=== PATIENT | male | born 1955 | race Caucasian/White ===

== ENCOUNTER 2017-10-23 15:22 | Emergency (ER) | payer OTHER ==
[~2017-10-23] VITALS: Ht 177.8 cm; Wt 100.0 kg
[2017-10-23 15:28] VITALS: BP 133/59; PULSE 84; RESP 16; TEMP 97.5; O2SAT 99
[2017-10-23] MEDS ORDERED: LIDOCAINE HCL 1% 50 ML VIAL INFIL ONE (17:45)
[2017-10-23] MEDS ORDERED: BUPIVACAINE HCL PF 0.5% 10 ML VIAL INFIL ONE (17:45)
[2017-10-23] MEDS ORDERED: LIDOCAINE HCL 1% PF 30 ML VIAL INFIL ONE (18:00)
--- NOTE | 2017-10-23 18:13 | PD ---
HPI Chief Complaint: Musculoskeletal Complaint Time Seen by Provider: 16:43 Travel History International Travel<30 days: No Contact w/Intl Traveler<30days: No Traveled to known affect area: No History of Present Illness HPI 62-year-old male presents to the emergency room requesting a joint aspiration of the right knee. Patient states he went to the [place] prior to arrival and they recommended he come here.0 2 of the joint aspirated. They were concerned for infection because the joint is slightly warm and red. Patient states this has been going on for 2 weeks. He has been able to try since then. He reports moderate pain. He has not taken anything for symptoms. He has history of bilateral knee replacement. His last operation on the right knee was in June,. Since then he is only had one other episode of "water on the knee." Prior to the last operation he states his knee was being drained every few months. Patient states that significant he improves his pain when he has his knee drained. He denies fever, chills, nausea, vomiting. Denies history of gout. [facility] Past Medical History High Cholesterol: Yes Diabetes: Yes Patient Takes Glucophage: Yes (metformin) Hypertension: Yes Past Surgical History Coronary Stent: Yes (2012, 2010) Joint Replacement: Yes (bilateral knees) Social History Alcohol Use: Yes (occ ) Tobacco Use: No Substance Use: No Allergies-Medications (Allergen,Severity, Reaction): Coded Allergies: No Known Allergies (Unverified , 10/23/17) Review of Systems Except as stated in HPI: all other systems reviewed are Neg Physical Exam Narrative GENERAL: Well-nourished, well-developed male in no acute distress. Afebrile. Ambulatory. SKIN: Focused skin assessment warm/dry. Mild increased warmth and redness to the right knee. HEAD: Normocephalic. EYES: No scleral icterus. No injection or drainage. NECK: Supple, trachea midline. No JVD or lymphadenopathy. CARDIOVASCULAR: Regular rate and rhythm without murmurs, gallops, or rubs. RESPIRATORY: Breath sounds equal bilaterally. No accessory muscle use. MUSCULOSKELETAL: No cyanosis, or edema. Obvious but mild effusion of the right knee. 2+ dorsalis pedis pulse. Slightly limited range of motion secondary to edema. Patient does not appear to be in significant pain during range of motion. Data Data Last Documented VS Vital Signs Date Time Temp Pulse Resp B/P (MAP) Pulse Ox O2 Delivery O2 Flow Rate FiO2 10/23/17 15:28 97.5 84 16 133/59 (83) 99 Orders Orders Knee, Ltd (1 Or 2vws) (10/23/17 ) Bupivacaine Pf 0.5% Inj (Marcaine Pf 0.5 (10/23/17 17:45) Lidocaine 1% Inj (50 Ml) (Xylocaine 1% I (10/23/17 17:45) Lidocaine Pf 1% Inj (Xylocaine-Mpf 1% In (10/23/17 18:00) Ed Discharge Order (10/23/17 18:56) MDM Medical Decision Making Medical Screen Exam Complete: Yes Emergency Medical Condition: Yes Medical Record Reviewed: Yes Differential Diagnosis Inflammatory arthritis, traumatic effusion, septic arthritis unlikely Narrative Course 62-year-old male presents to the emergency room requesting an aspiration of his right knee. [facility]. I have no clinical suspicion for septic arthritis. He is ambulatory with full range of motion. There is mild erythema and mild increased warmth. Patient has had no fevers. Dr. Massey performed a joint aspiration, see alternate provider note for details. The procedure did not produce any synovial fluid. Patient was told to follow-up as an outpatient for orthopedic intervention. He understands and agrees to plan. Diagnosis Primary Impression: Inflammatory arthritis Referrals: Orthopedist Additional Instructions: Follow-up with orthopedics. Return to the emergency room for worsening symptoms. Disposition: 01 DISCHARGE HOME Condition: Stable Melyssa Reno Oct 23, 2017 18:13
--- NOTE | 2017-10-23 18:21 | RADRPT ---
EXAM DATE/TIME: 10/23/2017 18:09 [facility] COMPARISON: No previous studies available for comparison. INDICATIONS : Right knee medial and lateral pain, no known injury. MEDICAL HISTORY : Hypertension. Diabetes mellitus type II. SURGICAL HISTORY : Total knee replacement, right. ENCOUNTER: Initial ACUITY: 1 week PAIN SCORE: 7/10 LOCATION: Right knee FINDINGS: Patient has a left total knee arthroplasty without evidence of fracture, subluxation or hardware fail ure/loosening. There is a small, nonspecific joint effusion. Also small apparent thickening of the pa tellar tendon best demonstrated on the lateral view. CONCLUSION: Intact right total knee arthroplasty. Suspected patellar tendinosis. Small, nonspecific joint effusio n. Jose Nickerson MD on October 23, 2017 at 18:18 Board Certified Radiologist. This report was verified electronically.
--- NOTE | 2017-10-23 18:56 | PD ---
Data Data Last Documented VS Vital Signs Date Time Temp Pulse Resp B/P (MAP) Pulse Ox O2 Delivery O2 Flow Rate FiO2 10/23/17 15:28 97.5 84 16 133/59 (83) 99 Orders Orders Fluid Culture And Gram Stain (10/23/17 17:45) Synovial Fl Cell Count + Diff (10/23/17 17:45) Synovial Fluid Crystals (10/23/17 17:45) Synovial Fluid Glucose (10/23/17 17:45) Synovial Fluid Total Protein (10/23/17 17:45) Knee, Ltd (1 Or 2vws) (10/23/17 ) Bupivacaine Pf 0.5% Inj (Marcaine Pf 0.5 (10/23/17 17:45) Lidocaine 1% Inj (50 Ml) (Xylocaine 1% I (10/23/17 17:45) Lidocaine Pf 1% Inj (Xylocaine-Mpf 1% In (10/23/17 18:00) MDM Supervised Visit with HUNTER: Yes Narrative Course The history, exam, and medical decision-making in the associated mid-level provider note were completed with my assistance. I reviewed and agree with the findings presented. I attest that I had a [id number] encounter with the patient on the same day, and personally performed and documented my assessment and findings in the medical record. *My assessment and Findings: This is a 62-year-old man who presents to the emergency department complaining of right knee pain and swelling. Been going on for about a week or so. Patient has extensive surgical history affecting the right knee including 2 joint replacements. He has had trouble with recurrent joint effusions and has had them drained multiple times in the past. He demonstrated offers him significant relief. He has had it happen one time since his last surgery. Is been worsening pain and swelling over the past week or so. [facility]. He has full range of motion of the knee without limitation. There is minimal warmth to the knee. There is swelling, but the states the amount of swelling is very common for him. I had an extensive discussion with the patient and his . Initially recommended against any attempt at arthrocentesis given my very low concern for septic arthritis. Patient states that arthrocentesis offered him significant relief in the past. His orthopedic surgeon he has not seen in some time and is in [place] where he used to live. After discussion of risks and benefits including the significant increased risk of infection, patient would like to proceed. Using sterile technique, we attempted to drain fluid from the area of maximum fluctuance in the inferior lateral aspect of the knee. 2 attempts with no return of fluid. At this point I recommended strongly against avoiding any further attempts at arthrocentesis. I believe the increased risk of infection and extremely low risk of current septic arthritis would suggest the best course of action is some compression, and follow-up with an orthopedic surgeon. I told him I would give them follow-up information for our orthopedic group, and also for Dr. Mcneal who is down here where they live. They believe they have to go through [facility] not to get orthopedics to the [place]. At this point he is comfortable. He has no infectious symptoms other than some minimal warmth to the right knee. I think this is an inflammatory arthritis, recommend outpatient follow-up with orthopedics. Return for any worsening symptoms. Diagnosis Primary Impression: Inflammatory arthritis Referrals: Faustina Posadas MD 1 week Kaleb Mcneal MD ([place]) 1 week Additional Instruction: Follow-up with orthopedic physician the next week. Return to the emergency department for any worsening pain redness swelling fevers or any other new or worsening symptoms. Use compression dressing as needed for comfort. Med/Other Pt SpecificInfo: Prescription(s) given Disposition: 01 DISCHARGE HOME Condition: Stable Ang Massey MD Oct 23, 2017 18:56
== END 2017-10-23 19:32 | disposition home or self-care (01) ==
LOC: NEPD 15:22
DX: M13.861 Other specified arthritis, right knee (principal); I10 Essential (primary) hypertension; E78.00 Pure hypercholesterolemia, unspecified; E11.9 Type 2 diabetes mellitus without complications; Z79.84 Long term (current) use of oral hypoglycemic drugs
CPT/HCPCS: 20610; 73560